=== PATIENT | female | born 1965 | race Caucasian/White ===

== ENCOUNTER 2017-11-26 17:34 | Inpatient (IN) | payer OTHER ==
[2017-11-26] MEDS ORDERED: ONDANSETRON 4 MG INJ (18:14)
[2017-11-26] MEDS ORDERED: LIDOCAINE/MYLANTA 40 ML BTL (18:14)
[2017-11-26] MEDS: ONDANSETRON 4 MG INJ IV ×2 (18:16→18:38)
[2017-11-26] MEDS: LIDOCAINE/MYLANTA 40 ML BTL PO ×2 (18:17→19:30)
[2017-11-26 18:23] LABS: ADD MAN DIFF? NO
[2017-11-26 18:26] LABS: BASOPHIL # 0.1 10^3/ul (0.0-0.1); BASOPHILS % 0.9 % (0.0-2.0); EOSINOPHILS # 0.3 10^3/ul (0.0-0.5); EOSINOPHILS % 2.7 % (0.0-7.0); HEMATOCRIT 41.1 % (37.0-47.0); HEMOGLOBIN 13.4 g/dl (12.0-16.0); LYMPHOCYTES # 2.8 10^3/ul (0.8-2.9); LYMPHOCYTES % 27.9 % (15.0-51.0); MEAN CORPUSCULAR HEMOGLOBIN 28.8 pg (29.0-33.0); MEAN CORPUSCULAR HGB CONC 32.6 g/dl (32.0-37.0); MEAN CORPUSCULAR VOLUME 88.2 fl (82.0-101.0); MEAN PLATELET VOLUME 9.6 fl (7.4-10.4); MONOCYTE # 0.6 10^3/ul (0.3-0.9); MONOCYTES % 5.9 % (0.0-11.0); NEUTROPHIL # 6.2 10^3/ul (1.6-7.5); NEUTROPHILS % 62.4 % (39.0-77.0); PLATELET COUNT 347 10^3/UL (140-415); RED BLOOD COUNT 4.66 10^6/ul (4.20-5.40); RED CELL DISTRIBUTION WIDTH 12.6 % (11.5-14.5)
[2017-11-26 18:26] LABS: WHITE BLOOD COUNT 9.9 10^3/ul (4.8-10.8)
[2017-11-26] MEDS: METOCLOPRAMIDE 10 MG INJ IV (18:37)
[2017-11-26] MEDS: LORAZEPAM 2 MG INJ IV (18:38)
[2017-11-26] MEDS: morphine 4 MG/ML VIAL IV (18:38)
[2017-11-26 18:51] LABS: ALANINE AMINOTRANSFERASE 22 IU/L (13-69); ALBUMIN 4.3 g/dl (3.3-4.9); ALKALINE PHOSPHATASE 81 IU/L (42-121); ASPARTATE AMINO TRANSFERASE 17 IU/L (15-46); BILIRUBIN,INDIRECT 0.1 mg/dl (0-1.1); BILIRUBIN,TOTAL 0.1 mg/dl (0.2-1.3); LIPASE 177 U/L (23-300); TOTAL PROTEIN 7.6 g/dl (6.1-8.1)
[2017-11-26 18:52] LABS: ANION GAP 18 (8-16); BLOOD UREA NITROGEN 14 mg/dl (7-20); CALCIUM 9.5 mg/dl (8.4-10.2); CARBON DIOXIDE 31 mmol/L (21-31); CHLORIDE 101 mmol/L (97-110); GLUCOSE 158 mg/dl (70-220); POTASSIUM 3.4 mmol/L (3.5-5.1); SODIUM 147 mmol/L (135-144)
[2017-11-26 19:03] LABS: B-TYPE NATRIURETIC PEPTIDE 86 PG/ML (0-125); TROPONIN-I 0.042 ng/ml (0.00-0.12)
[2017-11-26] MEDS ORDERED: ACETAMINOPHEN 325 MG TAB PO ×2 (21:30→23:00)
[2017-11-26] MEDS: SOD CHLORIDE 0.9% 1,000 ML IV (22:54)
[2017-11-26] MEDS: HYDROmorphONE 1 MG/ML SYG IV (22:54)
[2017-11-26] MEDS ORDERED: NACL 0.9% 3 ML SYG IV (23:00)
[2017-11-26] MEDS ORDERED: ALBUTEROL/IPRATROPIUM (NEB) 3 ML AMP HHN (23:00)
[2017-11-26] MEDS ORDERED: LORAZEPAM 2 MG INJ IV (23:00)
[2017-11-26] MEDS ORDERED: HYDROCODONE/APAP (5/325) TAB PO (23:00)
[2017-11-26] MEDS ORDERED: NA PHOSPHATE/BIPHOS 133 ML ENEMA PR (23:00)
[2017-11-26] MEDS ORDERED: NITROGLYCERIN (SL) 0.4 MG TAB SL (23:00)
[2017-11-26] MEDS ORDERED: DOCUSATE SODIUM 100 MG CAP PO (23:00)
[2017-11-26] MEDS ORDERED: hydrALAzine 20 MG INJ IV (23:00)
[2017-11-26] MEDS ORDERED: MAGNESIUM HYDROXIDE 30ML CUP PO (23:00)
[2017-11-27] MEDS: SOD CHLORIDE 0.45% 1,000 ML IV ×3 (02:18→16:00)
[2017-11-27 03:02] LABS: INR 0.95; PROTIME 12.8 Sec (11.9-14.9)
[2017-11-27 03:03] LABS: PARTIAL THROMBOPLASTIN TIME 30.8 Sec (25.0-35.0)
[2017-11-27 03:05] LABS: CREATINE KINASE 61 IU/L (23-200)
[2017-11-27 03:17] LABS: CK-MB 0.58 ng/ml (0.0-2.4); TROPONIN-I 0.039 ng/ml (0.00-0.12)
[2017-11-27 03:24] LABS: FREE T4 (FREE THYROXINE) 1.15 ng/dl (0.64-1.79)
[2017-11-27] MEDS ORDERED: POTASSIUM CHLORIDE 50 ML IVPB (05:30)
[2017-11-27] MEDS: PANTOPRAZOLE (EC) 40 MG TAB PO (05:54)
[2017-11-27] MEDS: POTASSIUM CHLORIDE 20 MEQ POWDER FOR ORAL SOLN PO (05:54)
[2017-11-27 05:57] LABS: ADD MAN DIFF? NO
[2017-11-27 06:13] LABS: BASOPHIL # 0.1 10^3/ul (0.0-0.1); BASOPHILS % 0.5 % (0.0-2.0); EOSINOPHILS % 0.2 % (0.0-7.0); HEMATOCRIT 39.4 % (37.0-47.0); HEMOGLOBIN 12.8 g/dl (12.0-16.0); LYMPHOCYTES # 1.8 10^3/ul (0.8-2.9); LYMPHOCYTES % 17.9 % (15.0-51.0); MEAN CORPUSCULAR HEMOGLOBIN 28.5 pg (29.0-33.0); MEAN CORPUSCULAR HGB CONC 32.5 g/dl (32.0-37.0); MEAN CORPUSCULAR VOLUME 87.8 fl (82.0-101.0); MEAN PLATELET VOLUME 9.3 fl (7.4-10.4); MONOCYTE # 0.7 10^3/ul (0.3-0.9); MONOCYTES % 7.1 % (0.0-11.0); NEUTROPHIL # 7.4 10^3/ul (1.6-7.5); PLATELET COUNT 314 10^3/UL (140-415); RED BLOOD COUNT 4.49 10^6/ul (4.20-5.40); RED CELL DISTRIBUTION WIDTH 12.5 % (11.5-14.5)
[2017-11-27 06:17] LABS: ANION GAP 15 (8-16); BLOOD UREA NITROGEN 7 mg/dl (7-20); CALCIUM 9.3 mg/dl (8.4-10.2); CARBON DIOXIDE 25 mmol/L (21-31); CHLORIDE 104 mmol/L (97-110); CREATININE 0.56 mg/dl (0.44-1.00); GLUCOSE 111 mg/dl (70-220); MAGNESIUM 1.8 mg/dl (1.7-2.5); PHOSPHORUS 4.6 mg/dl (2.5-4.9); POTASSIUM 3.7 mmol/L (3.5-5.1); SODIUM 140 mmol/L (135-144)
[2017-11-27 06:18] LABS: CHOLESTEROL 117 mg/dl (100-200)
[2017-11-27 06:18] LABS: CHOL/HDL RATIO 2.4 RATIO; CREATINE KINASE 56 IU/L (23-200); HDL CHOLESTEROL 47 mg/dl (37-92); LDL CHOLESTEROL,CALCULATED 62 mg/dl; TRIGLYCERIDES 39 mg/dl (0-149)
[2017-11-27 06:29] LABS: CK INDEX 0.9; CK-MB 0.49 ng/ml (0.0-2.4); TROPONIN-I 0.041 ng/ml (0.00-0.12)
[2017-11-27 06:47] LABS: THYROID STIMULATING HORMONE 0.892 MIU/L (0.465-4.680)
[2017-11-27 07:51] LABS: HEMOGLOBIN A1C 5.4 % (0-5.9)
[2017-11-27] MEDS: ONDANSETRON 4 MG INJ IV ×2 (12:56)
[2017-11-27] MEDS: HEPARIN 5,000 UNIT/0.5 ML VIAL SC ×2 (13:02→21:08)
[2017-11-27] MEDS: morphine 2 MG INJ IV (21:11)
[2017-11-28] MEDS: SOD CHLORIDE 0.45% 1,000 ML IV ×2 (01:14→05:21)
[2017-11-28] MEDS: PANTOPRAZOLE (EC) 40 MG TAB PO (05:21)
[2017-11-28 06:09] LABS: ADD MAN DIFF? NO
[2017-11-28 06:17] LABS: BASOPHIL # 0.1 10^3/ul (0.0-0.1); EOSINOPHILS # 0.2 10^3/ul (0.0-0.5); EOSINOPHILS % 2.9 % (0.0-7.0); HEMATOCRIT 40.7 % (37.0-47.0); HEMOGLOBIN 13.4 g/dl (12.0-16.0); LYMPHOCYTES # 2.2 10^3/ul (0.8-2.9); LYMPHOCYTES % 30.8 % (15.0-51.0); MEAN CORPUSCULAR HEMOGLOBIN 28.6 pg (29.0-33.0); MEAN CORPUSCULAR HGB CONC 32.9 g/dl (32.0-37.0); MEAN CORPUSCULAR VOLUME 86.8 fl (82.0-101.0); MEAN PLATELET VOLUME 9.4 fl (7.4-10.4); MONOCYTE # 0.6 10^3/ul (0.3-0.9); NEUTROPHILS % 57.2 % (39.0-77.0); PLATELET COUNT 344 10^3/UL (140-415); RED BLOOD COUNT 4.69 10^6/ul (4.20-5.40); RED CELL DISTRIBUTION WIDTH 12.2 % (11.5-14.5)
[2017-11-28 06:48] LABS: ANION GAP 15 (8-16); BLOOD UREA NITROGEN 6 mg/dl (7-20); CALCIUM 8.7 mg/dl (8.4-10.2); CARBON DIOXIDE 27 mmol/L (21-31); CHLORIDE 101 mmol/L (97-110); CREATININE 0.67 mg/dl (0.44-1.00); GLUCOSE 84 mg/dl (70-220); POTASSIUM 3.5 mmol/L (3.5-5.1); SODIUM 139 mmol/L (135-144)
[2017-11-28] MEDS: NICOTINE (14 MG/24 HR) PATCH TRANSDERM (08:41)
[2017-11-28] MEDS: INFLUENZA VIRUS VACCINE 0.5 ML SYG IM* (08:42)
[2017-11-28] MEDS: HEPARIN 5,000 UNIT/0.5 ML VIAL SC ×2 (08:44→20:14)
[2017-11-28] MEDS: morphine 2 MG INJ IV ×2 (08:56→17:51)
[2017-11-29] MEDS: SOD CHLORIDE 0.45% 1,000 ML IV ×2 (01:20→17:14)
[2017-11-29] MEDS: morphine 2 MG INJ IV ×2 (05:32→10:24)
[2017-11-29] MEDS: PANTOPRAZOLE (EC) 40 MG TAB PO (05:36)
[2017-11-29 05:41] LABS: ADD MAN DIFF? NO
[2017-11-29 05:45] LABS: WHITE BLOOD COUNT 6.5 10^3/ul (4.8-10.8)
[2017-11-29 05:45] LABS: BASOPHIL # 0.1 10^3/ul (0.0-0.1); BASOPHILS % 1.1 % (0.0-2.0); EOSINOPHILS # 0.3 10^3/ul (0.0-0.5); EOSINOPHILS % 3.8 % (0.0-7.0); HEMATOCRIT 37.9 % (37.0-47.0); HEMOGLOBIN 12.6 g/dl (12.0-16.0); LYMPHOCYTES # 2.3 10^3/ul (0.8-2.9); LYMPHOCYTES % 34.6 % (15.0-51.0); MEAN CORPUSCULAR HEMOGLOBIN 28.8 pg (29.0-33.0); MEAN CORPUSCULAR HGB CONC 33.2 g/dl (32.0-37.0); MEAN CORPUSCULAR VOLUME 86.7 fl (82.0-101.0); MEAN PLATELET VOLUME 9.3 fl (7.4-10.4); MONOCYTE # 0.5 10^3/ul (0.3-0.9); MONOCYTES % 8.3 % (0.0-11.0); NEUTROPHIL # 3.4 10^3/ul (1.6-7.5); PLATELET COUNT 322 10^3/UL (140-415); RED BLOOD COUNT 4.37 10^6/ul (4.20-5.40); RED CELL DISTRIBUTION WIDTH 12.1 % (11.5-14.5)
[2017-11-29 06:09] LABS: ALANINE AMINOTRANSFERASE 26 IU/L (13-69); ALBUMIN 3.5 g/dl (3.3-4.9); ALBUMIN/GLOBULIN RATIO 1.06; ALKALINE PHOSPHATASE 67 IU/L (42-121); ANION GAP 15 (8-16); ASPARTATE AMINO TRANSFERASE 15 IU/L (15-46); BILIRUBIN,INDIRECT 0.4 mg/dl (0-1.1); BILIRUBIN,TOTAL 0.4 mg/dl (0.2-1.3); BLOOD UREA NITROGEN 10 mg/dl (7-20); CALCIUM 8.7 mg/dl (8.4-10.2); CARBON DIOXIDE 26 mmol/L (21-31); CHLORIDE 100 mmol/L (97-110); CREATININE 0.69 mg/dl (0.44-1.00); GLUCOSE 59 mg/dl (70-220); POTASSIUM 3.4 mmol/L (3.5-5.1); SODIUM 138 mmol/L (135-144); TOTAL PROTEIN 6.8 g/dl (6.1-8.1)
[2017-11-29] MEDS ORDERED: LIDOCAINE 2% (SDV) 5 ML INJ (07:00)
[2017-11-29] MEDS ORDERED: METOCLOPRAMIDE 10 MG INJ (07:00)
[2017-11-29] MEDS ORDERED: CIPRO 400 MG/200 ML D5W IVPB (07:00)
[2017-11-29] MEDS ORDERED: PHENYLephrine (100 MCG/ML) 5ML SYG (07:00)
[2017-11-29] MEDS: HEPARIN 5,000 UNIT/0.5 ML VIAL SC (09:00)
[2017-11-29] MEDS: NICOTINE (14 MG/24 HR) PATCH TRANSDERM (09:00)
[2017-11-29] MEDS: DEXTROSE 50% 50 ML SYRINGE IV (13:24)
[2017-11-29] MEDS ORDERED: FENTAnyl 50 MCG/ML VIAL (13:57)
[2017-11-29] MEDS ORDERED: MIDAZOLAM 1 MG/ML 2 ML INJ (13:58)
[2017-11-29] MEDS ORDERED: PROPOFOL 20 ML (13:59)
[2017-11-29] MEDS ORDERED: SUCCINYLCHOLINE CHLORIDE 100 MG/5 ML SYG IV (13:59)
[2017-11-29] MEDS ORDERED: ONDANSETRON 4 MG INJ (14:00)
[2017-11-29] MEDS ORDERED: ROCURONIUM 50 MG INJ (14:00)
[2017-11-29] MEDS ORDERED: NEOSTIGMINE 3 MG/3 ML SYRINGE (14:00)
[2017-11-29] MEDS ORDERED: GLYCOPYRROLATE 0.4 MG INJ (14:00)
[2017-11-29] MEDS ORDERED: BUPIVACAINE 0.5%/EPI (SDV) 30 ML INJ (15:29)
[2017-11-29] MEDS ORDERED: CA CHLORIDE 10% 10 ML SYRINGE (16:01)
[2017-11-29] MEDS ORDERED: HYDROmorphONE 2 MG/ML SYG (16:30)
[2017-11-29] MEDS ORDERED: VASOPRESSIN 20 UNITS INJ (17:12)
[2017-11-29] MEDS ORDERED: ROPIVACAINE 0.5 % 30 ML VIAL (17:13)
[2017-11-29] MEDS: BUPIVACAINE 0.5%/EPI (SDV) 30 ML INJ (17:21)
[2017-11-29] MEDS ORDERED: hydrALAzine 20 MG INJ IV (18:00)
[2017-11-29] MEDS ORDERED: BISACODYL 10 MG SUPP PR (18:00)
[2017-11-29] MEDS ORDERED: HYDROmorphONE (0.2 MG/ML) 10ML SYG IV ×2 (18:00)
[2017-11-29] MEDS ORDERED: DOCUSATE SODIUM 100 MG CAP PO (18:00)
[2017-11-29] MEDS ORDERED: ALBUTEROL 0.083% (NEB) 2.5 MG/3 ML AMP HHN (18:00)
[2017-11-29] MEDS ORDERED: ALBUMIN HUMAN 5% 250 ML IV (18:00)
[2017-11-29] MEDS ORDERED: LABETALOL HCL 20MG INJ IV (18:00)
[2017-11-29] MEDS ORDERED: DIPHENHYDRAMINE 50 MG INJ IV (18:00)
[2017-11-29] MEDS ORDERED: EPHEDrine SULFATE 50 MG/5 ML SYG IV (18:00)
[2017-11-29] MEDS ORDERED: IPRATROPIUM (NEB) 0.5 MG/2.5 ML AMP HHN (18:00)
[2017-11-29] MEDS ORDERED: MEPERIDINE 25 MG INJ IV (18:00)
[2017-11-29] MEDS ORDERED: NA PHOSPHATE/BIPHOS 133 ML ENEMA PR (18:00)
[2017-11-29] MEDS ORDERED: METOCLOPRAMIDE 10 MG INJ IV (18:00)
[2017-11-29] MEDS ORDERED: ONDANSETRON 4 MG INJ IV (18:00)
[2017-11-29] MEDS ORDERED: FENTAnyl 50 MCG/ML VIAL IV ×2 (18:00)
[2017-11-29] MEDS: ALBUMIN HUMAN 5% 250 ML IV ×2 (18:51→19:02)
[2017-11-29] MEDS: CA CHLORIDE 10% 10 ML SYRINGE IV (19:45)
[2017-11-29] MEDS ORDERED: CALCIUM CHLORIDE 10% 1 GM in DEXTROSE 5% 100 ML IV (20:00)
[2017-11-29] MEDS: D5W-0.45 NACL + KCL 20 MEQ 1,000 ML IV (21:16)
[2017-11-29 23:43] LABS: TROPONIN-I 0.043 ng/ml (0.00-0.12)
[2017-11-30] MEDS: IOHEXOL 300MG/ML 150 ML BTL (00:09)
[2017-11-30] MEDS: SOD CHLORIDE 0.9% 100 ML (00:09)
[2017-11-30] MEDS: HYDROCODONE/APAP (5/325) TAB PO ×2 (02:14→13:34)
[2017-11-30] MEDS: D5W-0.45 NACL + KCL 20 MEQ 1,000 ML IV (02:55)
[2017-11-30] MEDS: HYDROmorphONE 0.5 MG/0.5 ML SYG IV (03:08)
[2017-11-30] MEDS: PANTOPRAZOLE (EC) 40 MG TAB PO (06:00)
[2017-11-30] MEDS: HYDROmorphONE 1 MG/ML SYG IV (07:47)
[2017-11-30] MEDS: ENOXAPARIN 40 MG/0.4 ML SYG SC (08:53)
[2017-11-30] MEDS: NICOTINE (14 MG/24 HR) PATCH TRANSDERM (08:53)
[2017-11-30] MEDS ORDERED: FAMOTIDINE 20 MG INJ IV (09:00)
[2017-11-30] MEDS: KETOROLAC 30 MG INJ IV ×3 (09:01→20:01)
[2017-11-30 09:33] LABS: ADD MAN DIFF? NO
[2017-11-30 09:39] LABS: BASOPHIL # 0.1 10^3/ul (0.0-0.1); BASOPHILS % 0.7 % (0.0-2.0); EOSINOPHILS # 0.1 10^3/ul (0.0-0.5); EOSINOPHILS % 1.6 % (0.0-7.0); HEMATOCRIT 35.7 % (37.0-47.0); LYMPHOCYTES # 1.9 10^3/ul (0.8-2.9); LYMPHOCYTES % 24.4 % (15.0-51.0); MEAN CORPUSCULAR HEMOGLOBIN 28.8 pg (29.0-33.0); MEAN CORPUSCULAR HGB CONC 33.6 g/dl (32.0-37.0); MEAN CORPUSCULAR VOLUME 85.6 fl (82.0-101.0); MEAN PLATELET VOLUME 9.7 fl (7.4-10.4); MONOCYTE # 0.7 10^3/ul (0.3-0.9); MONOCYTES % 9.1 % (0.0-11.0); NEUTROPHIL # 4.9 10^3/ul (1.6-7.5); NEUTROPHILS % 64.1 % (39.0-77.0); PLATELET COUNT 315 10^3/UL (140-415); RED BLOOD COUNT 4.17 10^6/ul (4.20-5.40); RED CELL DISTRIBUTION WIDTH 12.4 % (11.5-14.5)
[2017-11-30 09:39] LABS: WHITE BLOOD COUNT 7.6 10^3/ul (4.8-10.8)
[2017-11-30 10:14] LABS: ANION GAP 11 (8-16); BLOOD UREA NITROGEN 4 mg/dl (7-20); CARBON DIOXIDE 29 mmol/L (21-31); CHLORIDE 101 mmol/L (97-110); CREATININE 0.61 mg/dl (0.44-1.00); GLUCOSE 129 mg/dl (70-220); POTASSIUM 3.5 mmol/L (3.5-5.1); SODIUM 137 mmol/L (135-144)
[2017-11-30] MEDS: ONDANSETRON 4 MG INJ IV (11:17)
[2017-12-01] MEDS: SOD CHLORIDE 0.9% 250 ML IV (00:16)
[2017-12-01] MEDS: KETOROLAC 30 MG INJ IV (03:21)
[2017-12-01] MEDS: PANTOPRAZOLE (EC) 40 MG TAB PO (06:00)
[2017-12-01 08:19] LABS: WHITE BLOOD COUNT 6.6 10^3/ul (4.8-10.8)
[2017-12-01 08:19] LABS: ADD MAN DIFF? NO; BASOPHILS % 0.6 % (0.0-2.0); EOSINOPHILS # 0.2 10^3/ul (0.0-0.5); EOSINOPHILS % 3.5 % (0.0-7.0); HEMATOCRIT 36.3 % (37.0-47.0); HEMOGLOBIN 12.1 g/dl (12.0-16.0); LYMPHOCYTES # 2.2 10^3/ul (0.8-2.9); MEAN CORPUSCULAR HEMOGLOBIN 28.9 pg (29.0-33.0); MEAN CORPUSCULAR HGB CONC 33.3 g/dl (32.0-37.0); MEAN CORPUSCULAR VOLUME 86.8 fl (82.0-101.0); MEAN PLATELET VOLUME 9.2 fl (7.4-10.4); MONOCYTE # 0.6 10^3/ul (0.3-0.9); MONOCYTES % 8.4 % (0.0-11.0); NEUTROPHIL # 3.6 10^3/ul (1.6-7.5); NEUTROPHILS % 54.3 % (39.0-77.0); PLATELET COUNT 338 10^3/UL (140-415); RED BLOOD COUNT 4.18 10^6/ul (4.20-5.40); RED CELL DISTRIBUTION WIDTH 12.4 % (11.5-14.5)
[2017-12-01 08:44] LABS: LACTIC ACID 1.1 mmol/L (0.5-2.0)
[2017-12-01 09:02] LABS: INR 0.97
[2017-12-01 09:03] LABS: PARTIAL THROMBOPLASTIN TIME 33.8 Sec (25.0-35.0)
[2017-12-01] MEDS: NICOTINE (14 MG/24 HR) PATCH TRANSDERM (09:06)
[2017-12-01] MEDS: ENOXAPARIN 40 MG/0.4 ML SYG SC (09:08)
[2017-12-01 09:29] LABS: ALANINE AMINOTRANSFERASE 43 IU/L (13-69); ALBUMIN 3.5 g/dl (3.3-4.9); ALKALINE PHOSPHATASE 60 IU/L (42-121); ANION GAP 15 (8-16); ASPARTATE AMINO TRANSFERASE 41 IU/L (15-46); BLOOD UREA NITROGEN 5 mg/dl (7-20); CALCIUM 9.1 mg/dl (8.4-10.2); CARBON DIOXIDE 32 mmol/L (21-31); CHLORIDE 100 mmol/L (97-110); CREATININE 0.68 mg/dl (0.44-1.00); GLUCOSE 104 mg/dl (70-220); MAGNESIUM 1.7 mg/dl (1.7-2.5); POTASSIUM 3.9 mmol/L (3.5-5.1); SODIUM 143 mmol/L (135-144)
[2017-12-01] MEDS: HYDROmorphONE 0.5 MG/0.5 ML SYG IV (09:35)
[2017-12-01 09:38] LABS: B-TYPE NATRIURETIC PEPTIDE 208 PG/ML (0-125)
[2017-12-01] MEDS: HYDROCODONE/APAP (5/325) TAB PO (13:53)
== END 2017-12-01 15:48 | disposition home or self-care (01) | DRG 418 ==
LOC: MS3 21:25 → MS4 11-30 00:20 → E/R 17:34 → MS4 11-30 00:29 → PP2 11-27 18:02 → MS4 11-30 00:20
PROC: 0FT44ZZ Resection of Gallbladder, Percutaneous Endoscopic Approach (ICD-10-PCS; principal; 2017-11-29 13:30)
DX: K80.00 Calculus of gallbladder with acute cholecystitis without obstruction (principal); K82.1 Hydrops of gallbladder; I95.89 Other hypotension; F41.8 Other specified anxiety disorders; Z72.0 Tobacco use
CPT/HCPCS: 36415; 71045; 71275; 74176; 76705; 78226; 80048; 80053; 80061; 80076; 82550; 82553; 82962; 83036; 83605; 83690; 83735; 83880; 84100; 84439; 84443; 84484; 85025; 85610; 85730; 88304; 90686; 93005; 96374; 96375; 96376; 99217; 99285-25; G0378

== ENCOUNTER 2017-12-15 13:04 | Outpatient (CLI) | payer OTHER | END 2017-12-15 17:00 | disposition home or self-care (01) | LOC: HPC 13:04 | DX: K80.10 Calculus of gallbladder with chronic cholecystitis without obstruction (principal) | CPT/HCPCS: Z7500 ==

== ENCOUNTER 2018-08-09 08:21 | Day surgery (SDC) | payer OTHER ==
[2018-08-09] MEDS ORDERED: PROPOFOL 20 ML (09:18)
[2018-08-09] MEDS ORDERED: FENTAnyl 50 MCG/ML VIAL (09:19)
== END 2018-08-09 10:39 | disposition home or self-care (01) ==
LOC: GIL 08:21
DX: Z12.11 Encounter for screening for malignant neoplasm of colon (principal); K64.8 Other hemorrhoids; F17.200 Nicotine dependence, unspecified, uncomplicated
CPT/HCPCS: 45378